=== PATIENT | male | born 1970 | race Caucasian/White ===

== ENCOUNTER 2017-09-10 21:06 | Emergency (ER) | payer SELFPAY ==
[~2017-09-10] VITALS: Ht 167.6 cm; Wt 84.1 kg
[2017-09-10 21:09] VITALS: BP 209/124; PULSE 78; RESP 16; TEMP 98.7; O2SAT 98
[2017-09-10] MEDS ORDERED: LISI-515 PO (21:27)
[2017-09-10 21:31] VITALS: BP 198/111; PULSE 78; RESP 18; O2SAT 99
[2017-09-10 21:41] VITALS: O2SAT 99
[2017-09-10] MEDS ORDERED: hydrALAZINE HCL 20 MG/ML VIAL IV PUSH ONE (21:45)
[2017-09-10] MEDS ORDERED: SODIUM CHLORIDE 0.9% FLUSH 10 ML FLUSH IVF PRN (21:45)
--- NOTE | 2017-09-10 21:48 | PD ---
HPI Chief Complaint: Neuro Symptoms/ Deficits Time Seen by Provider: 21:30 Travel History International Travel<30 days: No Contact w/Intl Traveler<30days: No Traveled to known affect area: No History of Present Illness HPI 46-year-old male presents to the emergency department for evaluation of hypertension for one week, headache that started yesterday morning, as well as right facial droop, difficulty with sleeping and closing his right eye that started this morning. Patient currently states he has burning pain to the occipital scalp that radiates to the right shoulder. He rates the pain 4/10. No exacerbating or alleviating factors. Patient points history of hypertension. He is currently on lisinopril and has been compliant. He states that he has noticed his blood pressures been running high for the past week. Patient is [place]-speaking and prefers translation to be done through family member. Official master planner is offered, the patient declined. He denies any chest pain or shortness of breath. He reports nausea, but no vomiting or diarrhea. No abdominal pain. He denies any arm or leg weakness. He reports numbness to the right face, but no other numbness. Moderate severity. PFSH Past Medical History Diabetes: Yes Patient Takes Glucophage: No Hypertension: Yes Tetanus Vaccination: < 5 Years Influenza Vaccination: No Social History Alcohol Use: Yes (occassional) Tobacco Use: No Substance Use: No Allergies-Medications (Allergen,Severity, Reaction): Coded Allergies: No Known Allergies (Unverified , 09/10/17) Reported Meds & Prescriptions Reported Meds & Active Scripts Active Reported Lisinopril 20 Mg Tab 20 Mg PO DAILY Review of Systems Except as stated in HPI: all other systems reviewed are Neg Physical Exam Narrative GENERAL: Well-nourished, well-developed male patient, ambulatory. Afebrile. Patient is alert and oriented to person, place, time. SKIN: Focused skin assessment warm/dry. No skin rash noted. HEAD: Normocephalic. Atraumatic. ENT: Mucosa pink and moist. No erythema or exudates. No uvular edema. No uvular , palatal, or tonsillar deviation. Airway patent. Nasal turbinates appear normal without nasal blood, purulent drainage or septal hematoma. Bilateral tympanic membranes are clear without erythema or perforation. EYES: No scleral icterus. No injection or drainage. NECK: Supple, trachea midline. No JVD or lymphadenopathy. CARDIOVASCULAR: Regular rate and rhythm without murmurs, gallops, or rubs. RESPIRATORY: Breath sounds equal bilaterally. No accessory muscle use. Lungs sounds are clear to auscultation. GASTROINTESTINAL: Abdomen soft, non-tender, nondistended. MUSCULOSKELETAL: No cyanosis, or edema. Bilateral upper and lower extremity strength 5/5. All extremities are neurovascularly intact. BACK: Nontender without obvious deformity. No CVA tenderness. NEUROLOGICAL: Awake and alert. Motor and sensory grossly within normal limits. Five out of 5 muscle strength in all muscle groups. Normal speech. Patient was decreased sensation to right face. He has right facial droop, inability to completely close his right eye. He has loss of wrinkle's to the right forehead. Bilateral upper lotion with strength 5/5. All extremities are neurovascularly intact. Finger to nose is normal bilaterally. [id number] is normal bilaterally. Data Data Last Documented VS Vital Signs Date Time Temp Pulse Resp B/P (MAP) Pulse Ox O2 Delivery O2 Flow Rate FiO2 09/10/17 22:20 77 18 164/92 (116) 99 Room Air 09/10/17 21:09 98.7 Orders Orders Electrocardiogram (09/10/17 21:37) Prothrombin Time / Inr (Pt) (09/10/17 21:37) Act Partial Throm Time (Ptt) (09/10/17 21:37) Complete Blood Count With Diff (09/10/17 21:37) Comprehensive Metabolic Panel (09/10/17 21:37) Ct Brain W/O Iv Contrast(Rout) (09/10/17 21:37) Ecg Monitoring (09/10/17 21:37) Iv Access Insert/Monitor (09/10/17 21:37) Oximetry (09/10/17 21:37) Sodium Chloride 0.9% Flush (Ns Flush) (09/10/17 21:45) Hydralazine Inj (Apresoline Inj) (09/10/17 21:45) Prochlorperazine Inj (Compazine Inj) (09/10/17 22:15) Diphenhydramine Inj (Benadryl Inj) (09/10/17 22:15) Potassium Chloride (Kcl) (09/10/17 23:00) Labs Laboratory Tests Test 09/10/17 21:45 White Blood Count 8.8 TH/MM3 Red Blood Count 5.07 MIL/MM3 Hemoglobin 15.3 GM/DL Hematocrit 42.5 % Mean Corpuscular Volume 83.7 FL Mean Corpuscular Hemoglobin 30.1 PG Mean Corpuscular Hemoglobin Concent 35.9 % Red Cell Distribution Width 13.7 % Platelet Count 319 TH/MM3 Mean Platelet Volume 8.0 FL Neutrophils (%) (Auto) 40.5 % Lymphocytes (%) (Auto) 45.9 % Monocytes (%) (Auto) 9.7 % Eosinophils (%) (Auto) 3.4 % Basophils (%) (Auto) 0.5 % Neutrophils # (Auto) 3.6 TH/MM3 Lymphocytes # (Auto) 4.1 TH/MM3 Monocytes # (Auto) 0.9 TH/MM3 Eosinophils # (Auto) 0.3 TH/MM3 Basophils # (Auto) 0.0 TH/MM3 CBC Comment DIFF FINAL Differential Comment Prothrombin Time 10.2 SEC Prothromb Time International Ratio 1.0 RATIO Activated Partial Thromboplast Time 25.4 SEC Blood Urea Nitrogen 13 MG/DL Creatinine 1.04 MG/DL Random Glucose 164 MG/DL Total Protein 8.0 GM/DL Albumin 3.6 GM/DL Calcium Level 8.3 MG/DL Alkaline Phosphatase 90 U/L Aspartate Amino Transf (AST/SGOT) 32 U/L Alanine Aminotransferase (ALT/SGPT) 42 U/L Total Bilirubin 0.3 MG/DL Sodium Level 142 MEQ/L Potassium Level 3.1 MEQ/L Chloride Level 106 MEQ/L Carbon Dioxide Level 28.2 MEQ/L Anion Gap 8 MEQ/L Estimat Glomerular Filtration Rate 78 ML/MIN [facility] Medical Decision Making Medical Screen Exam Complete: Yes Emergency Medical Condition: Yes Medical Record Reviewed: Yes Interpretation(s) Last Impressions Head CT 09/10/172136 Signed Impressions: Service Date/Time: Sunday, September 10, 2017 22:16 - CONCLUSION: No acute intracranial findings. Marty Zapata MD Differential Diagnosis Luna's palsy versus herpes zoster versus CVA versus intracranial hemorrhage versus hypertension versus electrolyte abnormality Narrative Course 46-year-old male presents to the emergency department for evaluation of hypertension for one week, headache that has been intermittent since yesterday morning as well as right facial numbness, droop that started this morning. EKG shows sinus rhythm, heart rate 83, no acute ST changes. CBC, CMP, PTT, PT/INR are ordered and pending. CT of the brain is ordered and pending. Patient is given hydralazine 10 mg IV for hypertension. CBC shows no acute abnormality. CMP shows hypokalemia at 3.1. Coags are unremarkable. CT of the brain shows no acute intracranial findings. Patient is given potassium 40 mEq by mouth for hypokalemia. Patient will be discharged prescription for prednisone and acyclovir for Luna's palsy. My attending physician, Dr. Perez, is aware of all findings and agrees with plan and disposition. Patient is given first dose of prednisone here. Diagnosis Primary Impression: Luna's palsy Additional Impression: Hypertension Qualified Codes: I10 - Essential (primary) hypertension Referrals: [facility] 3 days Primary Care Physician call for appointment Patient Instructions: Luna Palsy (ED), Chronic Hypertension (ED), General Instructions Additional Instructions: Take prednisone as directed. Start this tomorrow. Take valacyclovir as directed until gone. I increased your lisinopril to 40 mg daily. Follow-up with your primary care physician. Return to the emergency department for any acute worsening of symptoms. Med/Other Pt SpecificInfo: Prescription(s) given Scripts Lisinopril (Lisinopril) 40 Mg Tab 40 MG PO DAILY for Blood Pressure Management, #30 TAB 0 Refills Prov: Paola Malone 09/10/17 Valacyclovir (Valacyclovir) 1,000 Mg Tab 1000 MG PO TID for Mgmt Viral Infection for 7 Days, #90 TAB 0 Refills Prov: Paola Malone 09/10/17 Prednisone (Prednisone) 20 Mg Tab 60 MG PO DAILY for 4 Days, #12 TAB 0 Refills Prov: Paola Malone 09/10/17 Disposition: DISCHARGE HOME Condition: Stable Paola Malone Sep 10, 2017 21:48
[2017-09-10 21:49] VITALS: BP 185/104; PULSE 82; RESP 18; O2SAT 99
[2017-09-10 22:03] LABS: AUTOMATED NEUTROPHIL # 3.6 TH/MM3 (1.8-7.7); BASOPHIL % 0.5 % (0.0-2.0); EOSINOPHIL # 0.3 TH/MM3 (0-0.4); EOSINOPHIL % 3.4 % (0.0-4.0); HEMATOCRIT 42.5 % (39.0-51.0); HEMOGLOBIN 15.3 GM/DL (13.0-17.0); LYMPH % 45.9 % (9.0-44.0); LYMPHOCYTE # 4.1 TH/MM3 (1.0-4.8); MEAN CELL VOLUME 83.7 FL (80.0-100.0); MEAN CORPUSCULAR HEMOGLOBIN 30.1 PG (27.0-34.0); MEAN CORPUSCULAR HGB CONC 35.9 % (32.0-36.0); MONO % 9.7 % (0.0-8.0); MONOCYTE # 0.9 TH/MM3 (0-0.9); NEUT % 40.5 % (16.0-70.0); PLATELET COUNT 319 TH/MM3 (150-450); RED BLOOD COUNT 5.07 MIL/MM3 (4.50-5.90); RED CELL DISTRIBUTION WIDTH 13.7 % (11.6-17.2); WHITE BLOOD COUNT 8.8 TH/MM3 (4.0-11.0)
[2017-09-10] MEDS ORDERED: diphenhydrAMINE HCL 50 MG/ML VIAL IVP ONE (22:15)
[2017-09-10] MEDS ORDERED: PROCHLORPERAZINE INJ 10 MG/2 ML VIAL IVP ONE (22:15)
[2017-09-10 22:20] VITALS: BP 164/92; PULSE 77; RESP 18; O2SAT 99
[2017-09-10 22:26] LABS: ALBUMIN 3.6 GM/DL (3.4-5.0); AST (GOT) 32 U/L (15-37); BICARBONATE 28.2 MEQ/L (21.0-32.0); BLOOD UREA NITROGEN 13 MG/DL (7-18); CALCIUM 8.3 MG/DL (8.5-10.1); CHLORIDE 106 MEQ/L (98-107); CREATININE 1.04 MG/DL (0.60-1.30); GLOMERULAR FILTRATION RATE 78 ML/MIN (>89); GLUCOSE,RANDOM 164 MG/DL (74-106); SODIUM (NA) 142 MEQ/L (136-145)
[2017-09-10 22:27] LABS: ALKALINE PHOSPHATASE 90 U/L (45-117); ALT (GPT) 42 U/L (12-78); TOTAL BILIRUBIN ADULT 0.3 MG/DL (0.2-1.0)
--- NOTE | 2017-09-10 22:41 | RADRPT ---
EXAM DATE/TIME: 09/10/2017 22:16 [place] COMPARISON: No previous studies available for comparison. INDICATIONS : Headcahes with high blood pressure. RADIATION DOSE: 38.26 CTDIvol (mGy) MEDICAL HISTORY : Hypertension. Diabetes mellitus type 2. SURGICAL HISTORY : None. ENCOUNTER: Initial ACUITY: 1 day PAIN SCALE: 4/10 LOCATION: cranial TECHNIQUE: Multiple contiguous axial images were obtained of the head. Using automated exposure control and adj ustment of the mA and/or kV according to patient size, radiation dose was kept as low as reasonably a chievable to obtain optimal diagnostic quality images. DICOM format image data is available electro nically for review and comparison. FINDINGS: CEREBRUM: The ventricles are normal for age. No evidence of midline shift, mass lesion, hemorrhage or acute in farction. No extra-axial fluid collections are seen. POSTERIOR FOSSA: The cerebellum and brainstem are intact. The 4th ventricle is midline. The cerebellopontine angle i s unremarkable. EXTRACRANIAL: Mild mucosal thickening of the ethmoid sinuses. SKULL: The calvaria is intact. No evidence of skull fracture. CONCLUSION: No acute intracranial findings. Marty Zapata MD on September 10, 2017 at 22:38 Board Certified Radiologist. This report was verified electronically.
[2017-09-10 22:43] LABS: PROTHROMBIN TIME - PATIENT 10.2 SEC (9.8-11.6)
[2017-09-10] MEDS ORDERED: POTASSIUM CHLORIDE 20 MEQ CONTROLLED RELEASE TAB PO ONE (23:00)
[2017-09-10] MEDS ORDERED: VALA1TAB PO (23:04)
[2017-09-10] MEDS ORDERED: PRED20 PO (23:04)
[2017-09-10] MEDS ORDERED: LISI40TA PO (23:04)
[2017-09-10] MEDS ORDERED: predniSONE 20 MG TAB PO ONE (23:15)
--- NOTE | 2017-09-10 23:37 | PD ---
Data Data Last Documented VS Vital Signs Date Time Temp Pulse Resp B/P (MAP) Pulse Ox O2 Delivery O2 Flow Rate FiO2 09/10/17 23:17 09/10/17 22:20 77 18 99 Room Air 09/10/17 21:09 98.7 Orders Orders Electrocardiogram (09/10/17 21:37) Prothrombin Time / Inr (Pt) (09/10/17 21:37) Act Partial Throm Time (Ptt) (09/10/17 21:37) Complete Blood Count With Diff (09/10/17 21:37) Comprehensive Metabolic Panel (09/10/17 21:37) Ct Brain W/O Iv Contrast(Rout) (09/10/17 21:37) Ecg Monitoring (09/10/17 21:37) Iv Access Insert/Monitor (09/10/17 21:37) Oximetry (09/10/17 21:37) Sodium Chloride 0.9% Flush (Ns Flush) (09/10/17 21:45) Hydralazine Inj (Apresoline Inj) (09/10/17 21:45) Prochlorperazine Inj (Compazine Inj) (09/10/17 22:15) Diphenhydramine Inj (Benadryl Inj) (09/10/17 22:15) Potassium Chloride (Kcl) (09/10/17 23:00) Prednisone (Deltasone) (09/10/17 23:15) Ed Discharge Order (09/10/17 23:06) Labs Laboratory Tests Test 09/10/17 21:45 White Blood Count 8.8 TH/MM3 Red Blood Count 5.07 MIL/MM3 Hemoglobin 15.3 GM/DL Hematocrit 42.5 % Mean Corpuscular Volume 83.7 FL Mean Corpuscular Hemoglobin 30.1 PG Mean Corpuscular Hemoglobin Concent 35.9 % Red Cell Distribution Width 13.7 % Platelet Count 319 TH/MM3 Mean Platelet Volume 8.0 FL Neutrophils (%) (Auto) 40.5 % Lymphocytes (%) (Auto) 45.9 % Monocytes (%) (Auto) 9.7 % Eosinophils (%) (Auto) 3.4 % Basophils (%) (Auto) 0.5 % Neutrophils # (Auto) 3.6 TH/MM3 Lymphocytes # (Auto) 4.1 TH/MM3 Monocytes # (Auto) 0.9 TH/MM3 Eosinophils # (Auto) 0.3 TH/MM3 Basophils # (Auto) 0.0 TH/MM3 CBC Comment DIFF FINAL Differential Comment Prothrombin Time 10.2 SEC Prothromb Time International Ratio 1.0 RATIO Activated Partial Thromboplast Time 25.4 SEC Blood Urea Nitrogen 13 MG/DL Creatinine 1.04 MG/DL Random Glucose 164 MG/DL Total Protein 8.0 GM/DL Albumin 3.6 GM/DL Calcium Level 8.3 MG/DL Alkaline Phosphatase 90 U/L Aspartate Amino Transf (AST/SGOT) 32 U/L Alanine Aminotransferase (ALT/SGPT) 42 U/L Total Bilirubin 0.3 MG/DL Sodium Level 142 MEQ/L Potassium Level 3.1 MEQ/L Chloride Level 106 MEQ/L Carbon Dioxide Level 28.2 MEQ/L Anion Gap 8 MEQ/L Estimat Glomerular Filtration Rate 78 ML/MIN MDM Supervised Visit with ALAN: Yes Narrative Course The history, exam, and medical decision-making in the associated mid-level provider note were completed with my assistance. I reviewed and agree with the findings presented. I attest that I had a [id number] encounter with the patient on the same day, and personally performed and documented my assessment and findings in the medical record. *My assessment and Findings: 46-year-old man with some headache, and facial nerve palsy. He has a clear right sided facial nerve palsy due to fairly dense. No other neurologic findings on exam. He has no evidence of zoster. He does have some headache that was gradual in onset that predated this. CT is negative. No other evidence of stroke. Recommend treatment for Luna's palsy. Recommend antivirals for possible early zoster. Diagnosis Primary Impression: Luna's palsy Additional Impression: Hypertension Referrals: [facility] 3 days Primary Care Physician call for appointment Patient Instructions: General Instructions, Luna Palsy (ED), Chronic Hypertension (ED) Departure Forms: Tests/Procedures Additional Instruction: Take prednisone as directed. Start this tomorrow. Take valacyclovir as directed until gone. I increased your lisinopril to 40 mg daily. Follow-up with your primary care physician. Return to the emergency department for any acute worsening of symptoms. Scripts Lisinopril (Lisinopril) 40 Mg Tab 40 MG PO DAILY for Blood Pressure Management, #30 TAB 0 Refills Prov: Paola Malone 09/10/17 Valacyclovir (Valacyclovir) 1,000 Mg Tab 1000 MG PO TID for Mgmt Viral Infection for 7 Days, #90 TAB 0 Refills Prov: Paola Malone 09/10/17 Prednisone (Prednisone) 20 Mg Tab 60 MG PO DAILY for 4 Days, #12 TAB 0 Refills Prov: Paola Malone 09/10/17 Disposition: 01 DISCHARGE HOME Condition: Stable Gm Perez MD Sep 10, 2017 23:37
--- NOTE | 2017-09-11 21:44 | EKG ---
Date Performed: 09/10/2017 Time Performed: 21:32:35 PTAGE: 46 years EKG: Sinus rhythm NORMAL ECG NO PREVIOUS TRACING DOCTOR: Garima Carranza Interpretating Date/Time 09/11/2017 21:43:47
== END 2017-09-10 23:30 | disposition home or self-care (01) ==
LOC: NEPE 21:06
DX: G51.0 Bell's palsy (principal); I10 Essential (primary) hypertension; R51 Headache; R11.0 Nausea; E11.9 Type 2 diabetes mellitus without complications
CPT/HCPCS: 70450; 80053; 85025; 85610; 85730; 93005; 96374; 96375; 99285; J0360; J0780; J1200